=== PATIENT | male | born 1980 | race Caucasian/White ===

== ENCOUNTER 2018-07-20 15:03 | Emergency (ER) | payer OTHER ==
[~2018-07-20] VITALS: Ht 182.9 cm; Wt 97.5 kg
[2018-07-20 15:14] VITALS: BP 159/101
--- NOTE | 2018-07-20 15:15 | NUR ---
Per NICOLE "he was recently cleared in [place] (today-1hour or so ago) while being escorted out to the patrol car he dropped to the ground"
== END 2018-07-20 15:38 | disposition home or self-care (01) ==
LOC: ER 15:08
DX: R07.89 Other chest pain (principal); I10 Essential (primary) hypertension; J45.909 Unspecified asthma, uncomplicated; F41.9 Anxiety disorder, unspecified; F32.9 Major depressive disorder, single episode, unspecified; F17.200 Nicotine dependence, unspecified, uncomplicated; Z88.2 Allergy status to sulfonamides; Z59.0 Homelessness
CPT/HCPCS: A4606; Z7610

== ENCOUNTER 2020-10-02 14:08 | Emergency (ER) | payer OTHER ==
[~2020-10-02] VITALS: Ht 185.4 cm; Wt 145.1 kg
--- NOTE | 2020-10-02 14:08 | NUR ---
PT [address] C[address]O METH USED. "WE FOUND HIM ON THE TRAIN TRACKS" ON 5150 HOLD. PT IS AAOX2, NOT IN RESPIRATORY DISTRESS, HOOKED TO SLURRY MAN, KEPT RESTED AND COMFORTABLE. WILL CONTINUE TO MONITOR.
--- NOTE | 2020-10-02 14:19 | NUR ---
SEEN AND EXAMINED BY .
--- NOTE | 2020-10-02 14:32 | NUR ---
ER PHLEB AT BEDSIDE FOR BLOOD DRAW.
[2020-10-02 14:41] LABS: BASOPHILS % (AUTO) 0.4 % (0.0-2.0); EOSINOPHILS % (AUTO) 0.2 % (0.0-6.0); HEMATOCRIT 44 % (39-51); HEMOGLOBIN 14.9 g/dL (13.5-17.5); LYMPHOCYTES # (AUTO) 1.5 /CMM (0.8-4.8); MEAN CORPUSCULAR HGB CONC 34 g/dl (31.0-36.0); MEAN CORPUSCULAR VOLUME 95 fL (80-96); MONOCYTES % (AUTO) 11.2 % (2.0-12.0); NEUTROPHILS # (AUTO) 6.3 /CMM (1.8-8.9); NEUTROPHILS % (AUTO) 71.2 % (43.0-81.0); PLATELET COUNT (AUTO) 249 /CMM (150-450); RED BLOOD CELL COUNT(AUTO) 4.67 MIL/uL (4.5-6.0); WHITE BLOOD COUNT (AUTO) 8.9 K/uL (4.3-11.0)
[2020-10-02 14:51] LABS: CARBON DIOXIDE 24 mmol/L (21-32); CHLORIDE 101 mmol/L (98-107); CREATININE 1.2 mg/dL (0.6-1.3); GLUCOSE 82 mg/dL (74-106); POTASSIUM 3.5 mmol/L (3.5-5.1); SODIUM SERUM 139 mmol/L (136-145); UREA NITROGEN, BLOOD 21 mg/dL (7-18)
[2020-10-02 15:07] LABS: ALANINE AMINOTRANSFERASE 94 U/L (12-78); ALBUMIN 4.1 g/dL (3.4-5.0); ALCOHOL, BLOOD < 3 mg/dL (0-0); ALKALINE PHOSPHATASE 118 U/L (46-116); ASPARTATE AMINOTRANSFERASE 80 U/L (15-37); BILIRUBIN,DIRECT 0.5 mg/dL (0.0-0.2); BILIRUBIN,TOTAL 1.6 mg/dL (0.2-1.0); TOTAL PROTEIN, SERUM 7.8 g/dL (6.4-8.2)
[2020-10-02 15:11] LABS: ACETAMINOPHEN < 0 ug/ml (10-30)
[2020-10-02 15:28] LABS: BILIRUBIN,URINE SMALL (NEGATIVE); COLOR,URINE DARK YELLOW (YELLOW); LEUKOCYTE ESTERASE ,URINE Negative (NEGATIVE); NITRITE, URINE Negative (NEGATIVE); PH,URINE 5.5 (5.0-8.0); PROTEIN,URINE 30 mg/dl (NEGATIVE); UGLUCOSE Negative (NEGATIVE); UROBILINOGEN,URINE 0.2 EU/dL (0.2)
--- NOTE | 2020-10-02 15:33 | NUR ---
URINE SPECIMEN COLLECTED AND SENT TO LAB.
[2020-10-02 15:51] LABS: BACTERIA,URINE None seen /HPF (None Seen); RBC,URINE 0-2 /HPF (0-2); SQUAMOUS EPITHELIAL CELL,UR Few /HPF (None Seen); WBC,URINE 0-2 /HPF (0-3)
--- NOTE | 2020-10-02 17:16 | NUR ---
RAPID COVID SWAB DONE AND SENT TO LAB
[2020-10-02] MEDS ORDERED: HALOPERIDOL LACTATE INJ 5 MG/ML VIAL ONE (18:14)
[2020-10-02] MEDS ORDERED: diphenhydrAMINE HCL 50 MG/ML VIAL ONE (18:14)
[2020-10-02] MEDS ORDERED: LORAZEPAM INJ 2 MG/ML VIAL ONE (18:14)
[2020-10-02] MEDS ORDERED: diphenhydrAMINE HCL 50 MG/ML VIAL IM ONE (18:30)
[2020-10-02] MEDS ORDERED: LORAZEPAM INJ 2 MG/ML VIAL IM ONE (18:30)
[2020-10-02] MEDS ORDERED: HALOPERIDOL LACTATE INJ 5 MG/ML VIAL IM ONE (18:30)
--- NOTE | 2020-10-03 02:05 | NUR ---
WAS SEEN AND EVALUATED BY ART FROM CRISIS TEAM
[2020-10-03 06:57] VITALS: BP 124/75
--- NOTE | 2020-10-03 06:57 | NUR ---
pt ok to discharge home. Patient discharged to home in stable condition. Written and verbal after care instructions given. Patient verbalizes understanding of instruction.Patient is awake and alert to self, day, and place. pt ambulatory with a steady gait
== END 2020-10-03 06:57 | disposition home or self-care (01) ==
LOC: ER 14:12
DX: Z72.89 Other problems related to lifestyle (principal); F15.10 Other stimulant abuse, uncomplicated; Z59.0 Homelessness; I10 Essential (primary) hypertension; J45.909 Unspecified asthma, uncomplicated; F41.9 Anxiety disorder, unspecified; Z88.0 Allergy status to penicillin; F17.200 Nicotine dependence, unspecified, uncomplicated; R79.89 Other specified abnormal findings of blood chemistry; Z20.822 Contact with and (suspected) exposure to COVID-19
CPT/HCPCS: 36415; 80048; 80076; 80299; 80307; 80320; 81001; 85025; 87426; 96372 ×2; 99285; A6403; C9803; J1200; J1630; J2060; G0480